=== PATIENT | female | born 1960 | race African-American/Black ===

== ENCOUNTER 2017-03-29 20:56 | Emergency (ER) | payer MEDICAID, OTHER ==
[~2017-03-29] VITALS: Ht 154.9 cm; Wt 77.0 kg
[2017-03-29 21:12] LABS: GLUCOSE,POINT OF CARE 100 MG/DL (70-110)
[2017-03-29] MEDS ORDERED: INSNOV SQ (21:42)
[2017-03-29] MEDS ORDERED: INSLAN SQ (21:42)
[2017-03-30 01:13] VITALS: BP 126/78
== END 2017-03-30 01:14 | disposition home or self-care (01) ==
LOC: EMS 20:58
DX: R07.89 Other chest pain (principal); F17.210 Nicotine dependence, cigarettes, uncomplicated; E11.9 Type 2 diabetes mellitus without complications; I10 Essential (primary) hypertension; Z79.4 Long term (current) use of insulin; V44.5XXA Car driver injured in collision with heavy transport vehicle or bus in traffic accident, initial encounter; Y93.89 Activity, other specified; Y92.89 Other specified places as the place of occurrence of the external cause; Y99.8 Other external cause status
CPT/HCPCS: 82962; 99283